=== PATIENT | female | born 1965 | race Caucasian/White ===

== ENCOUNTER → 2016-05-12 | Outpatient (CLI) | payer BC ==
[~2016-05-12] MED LIST: BENADRYL PO; LEXAPRO PO; LITHIUM PO; SEROQUEL PO; TOPAMAX PO; TRAZODONE PO; ULTRAM PO
--- NOTE | ~2016-05-12 | NM22 ---
[facility] A Service of [facility] RADIOLOGY TEXT RESULTS PATIENT: RADHA DENNIS LOCATION: [facility] : 69 UNIT #: [id number] AGE: [address]: Vitaly Brooks Jr ENVIRONMENTAL EDUCATION SPECIALIST SEX: F ORDER DR: [id number] [facility] [address] [place], [place] [address] [id number] MR#: [id number] Acc #: [id number] NAME: RADHA DENNIS : 1965 SEX: F STUDY DATE/TIME: 05/12/2016 9:48 UNIT: [facility] ROOM: STUDY DESCRIPTION: MELANIE Hepatobiliary W GB Pharm Attending Physician: Vitaly Brooks Jr., A.P.RJan Referring Physician: Tresa James Jr..PJoanRJan Ordering Physician: Vitaly Brooks Jr., A.P.RJan Primary Care Physician: Vitaly Brooks Jr., Tresa.P.RJan MEDICAL IMAGING REPORT This report is preliminary unless electronic signature is present EXAM HIDA scan with Kinevac CCK, 05/12/2016. HISTORY Right upper quadrant abdominal pain with nausea, acid reflux, constipation, abdominal bloating, and loss of appetite, early satiety for 3 weeks. FINDINGS The patient received an intravenous injection of 5.47 mCi of technetium 99m tagged Choletec for hepatobiliary imaging. 1 hour following the injection of the radiopharmaceutical, the patient received an intravenous injection of 1.5 mcg of Kinevac. There is homogeneous distribution of the radiotracer throughout the liver. Gallbladder activity was seen by 30 minutes postinjection of the radiopharmaceutical. Following Kinevac injection, the gallbladder ejection fraction was 96.1% (normal is greater than 30%). IMPRESSION Normal HIDA scan with gallbladder ejection fraction of 96.1%. Dictated by... Yossi Roger M.D. THIS IS AN ELECTRONICALLY VERIFIED REPORT Yossi Roger M.D. at 05/13/2016 8:00 AM KRT/gia TD: 05/12/2016 14:31 JOB #: [id number] [facility] A Service of [facility] RADIOLOGY TEXT RESULTS PATIENT: [facility] DEN[id number] [birth year] UNIT #: [id number] AGE: [address]: Vitaly Brooks JrP SEX: F ORDER DR: MEDICAL IMAGING REPORT COPY
== END | disposition home or self-care (01) ==
LOC: CNUC 08:56
DX: R93.2 Abnormal findings on diagnostic imaging of liver and biliary tract (principal)
CPT/HCPCS: 78227; A9537; J2805

== ENCOUNTER 2016-08-15 18:27 | Emergency (ER) | payer BC ==
--- NOTE | ~2016-08-15 | CT4 ---
[facility] A Service of [facility] RADIOLOGY TEXT RESULTS PATIENT: RADHA DENNIS LOCATION: [facility] : 69 UNIT #: [id number] AGE: [address]: Maryellen Junior MD SEX: F ORDER DR: [id number] [facility] [address] [place], [place] [address] [id number] MR#: [id number] Acc #: [id number] NAME: RADHA DENNIS : 1965 SEX: F STUDY DATE/TIME: 08/15/2016 20:09 UNIT: [facility] ROOM: STUDY DESCRIPTION: CT Abd and Pelv Wo Cont Attending Physician: Maryellen Junior M.D. Ordering Physician: Maryellen Junior M.D. Primary Care Physician: Vitaly Brooks Jr., A.P.R.N. MEDICAL IMAGING REPORT This report is preliminary unless electronic signature is present EXAM CT scan of the abdomen and pelvis without contrast, 08/15/16. HISTORY Right-side abdominal pain, nausea and constipation for [address] was performed through the abdomen and pelvis without oral or intravenous contrast administration as per clinician request. This CT exam was performed with one or more of the following radiation dose reduction techniques: automatic exposure control, adjustment of mA and/or kV according to patient size, and iterative reconstruction. FINDINGS ABDOMEN: The exam is limited by the lack of oral and intravenous contrast. The liver, spleen, pancreas, gallbladder and biliary tree, adrenal glands and kidneys are normal. PELVIS FINDINGS: The gut, mesenteric and todd structures are normal except for diverticulosis without evidence of diverticulitis. The gut is otherwise unremarkable. No adenopathy is seen and there is no free fluid in the abdomen or pelvis. IMPRESSION 1. The examination is limited by the lack of oral and intravenous contrast. 2. Diverticulosis. No evidence of diverticulitis. Dictated by... Yossi Roger M.D. THIS IS AN ELECTRONICALLY VERIFIED REPORT [facility] A Service [facility] RADIOLOGY TEXT RESULTS PATIENT: RADHA DENNIS LOCATION: [place] #: [id number] : 69 UNIT #: [id number] AGE: [address]: Maryellen Junior MD SEX: F ORDER DR: Yossi Roger M.D. at 08/18/2016 8:27 AM KRT/norberto TD: 08/16/2016 00:21 JOB #: [id number] MEDICAL IMAGING REPORT Page 1 of 1 COPY
[2016-08-15 19:00] LABS: URINE SOURCE CLEAN CATCH
[2016-08-15 19:05] LABS: URINE APPEARANCE CLEAR; URINE BILIRUBIN NEG (NEG); URINE BLOOD NEG (NEG); URINE COLOR YELLOW; URINE GLUCOSE NEG (NEG); URINE KETONE NEG (NEG); URINE LEUKOCYTE ESTERASE NEG (NEG); URINE NITRATE NEG (NEG); URINE PH 7.5 (5-8); URINE PROTEIN NEG (NEG); URINE SPECIFIC GRAVITY 1.007 (1.003-1.035); URINE UROBILINOGEN 0.2 MG/DL (NEG)
[2016-08-15 19:06] LABS: BASOPHIL% 0.4 % (0-2.5); DIFF IND NO; EOSINOPHIL# 0.3 X10e3 (0-0.7); EOSINOPHIL% 2.2 % (0.0-7.0); HEMATOCRIT 41.7 % (35.0-45.0); HEMOGLOBIN 13.4 gm/dL (12.0-16.0); LYMPHOCYTE# 2.7 X10e3 (1.0-3.5); LYMPHOCYTE% 23.3 % (17.0-45.0); MEAN CELL VOLUME 90.2 FL (83-96); MEAN CORPUSCULAR HEMOGLOBIN 28.9 PG (28-34); MEAN PLATELET VOLUME 7.7 FL (6.5-11.5); MONOCYTE# 1.1 X10e3 (0-1.0); MONOCYTE% 9.4 % (3.0-12.0); NEUTROPHIL# 7.4 X10e3 (1.5-7.1); NEUTROPHIL% 64.7 % (40-75); PLATELET COUNT 301 X10e3 (140-420); RED BLOOD COUNT 4.63 X10e (3.90-5.30); RED CELL DISTRIBUTION WIDTH 12.4 % (11.0-15.5); WHITE BLOOD COUNT 11.5 X10e3 (4.0-10.5)
[2016-08-15 19:29] LABS: ALBUMIN SERUM 4.3 g/dL (3.5-5.0); ALKALINE PHOSPHATASE 60 U/L (32-92); ALT (SGPT) 21 U/L (10-40); AST (SGOT) 17 U/L (10-42); BILIRUBIN,TOTAL 0.7 mg/dL (0.2-2.0); BLOOD UREA NITROGEN 12 mg/dL (9-23); BUN/CREATININE RATIO 17.14; CALCIUM SERUM 9.6 mg/dL (8.4-10.2); CARBON DIOXIDE 27 mmol/L (22-31); CHLORIDE 102 mmol/L (100-111); CREATININE SERUM 0.7 mg/dL (0.6-1.4); GLOM FILT RATE Estimated 101.7 mL/min (>60); GLUCOSE FASTING 128 mg/dL (70-110); LIPASE 26 U/L (22-51); POTASSIUM 4.5 mmol/L (3.5-5.1); PROTEIN TOTAL SERUM 7.2 g/dL (6.0-8.3); SODIUM 136 mmol/L (135-145)
[2016-08-15 19:30] LABS: BILIRUBIN, DIRECT <0.1 mg/dL (0.0-0.2); BILIRUBIN,INDIRECT 0.6 mg/dL (0.0-0.9)
[2016-08-15 19:30] LABS: CULTURE INDICATED? NO
== END 2016-08-15 23:28 | disposition home or self-care (01) ==
LOC: CED 18:27
DX: R10.9 Unspecified abdominal pain (principal); I10 Essential (primary) hypertension; J45.909 Unspecified asthma, uncomplicated; Z88.2 Allergy status to sulfonamides; Z88.8 Allergy status to other drugs, medicaments and biological substances; G89.29 Other chronic pain; Z90.710 Acquired absence of both cervix and uterus
CPT/HCPCS: 36415; 74176; 80048; 80076; 81003; 83690; 84703; 85025; 96361; 96374; 96375; 99284; J2270; J2405